=== PATIENT | male | born 1980 | race Caucasian/White ===

== ENCOUNTER 2018-10-09 12:19 | Emergency (ER) | payer OTHER ==
[~2018-10-09] VITALS: Ht 185.4 cm; Wt 59.0 kg
[2018-10-09 12:27] VITALS: BP_SYST 117
[2018-10-09 14:20] VITALS: BP_SYST 117
== END 2018-10-09 14:15 | disposition home or self-care (01) ==
LOC: SED 12:19
DX: S93.402A Sprain of unspecified ligament of left ankle, initial encounter (principal); S93.602A Unspecified sprain of left foot, initial encounter; Z88.8 Allergy status to other drugs, medicaments and biological substances; W19.XXXA Unspecified fall, initial encounter; Y93.89 Activity, other specified; Y92.89 Other specified places as the place of occurrence of the external cause; Y99.8 Other external cause status
CPT/HCPCS: 99283